=== PATIENT | male | born 1955 | race Caucasian/White ===

== ENCOUNTER → 2017-12-17 09:07 | Outpatient (CLI) | payer OTHER, SELFPAY ==
[2017-12-17 09:20] LABS: Appearance Urine UA CLEAR; Bilirubin Urine UA NEGATIVE (NEGATIVE); Color Urine UA YELLOW; Glucose Urine UA NEGATIVE (Normal); Ketones Urine UA NEGATIVE (NEGATIVE); Leukocyte Esterase Urine UA NEGATIVE (NEGATIVE); Nitrite Urine UA Negative (Negative); Occult Blood Urine UA NEGATIVE (Negative); Protein Urine UA NEGATIVE (Negative); Specific Gravity Urine UA 1.015 (1.000-1.035); Urobilinogen Urine UA 0.2 E.U./dL (0.2); pH Urine UA 6.5 (4.5-8.0)
[2017-12-17 09:21] LABS: Add Manual Diff / Slide Review NO; Basophils Percent Auto 1.8 % (0-2); Hematocrit 44.2 % (41-53); Hemoglobin 15.2 g/dL (13.5-17.5); Lymphocytes Percent Auto 35.6 % (25-40); Mean Corpuscular HGB Conc 34.4 % (30-36); Mean Corpuscular Hemoglobin 33.6 PG (26-34); Mean Corpuscular Volume 97.8 fL (80-100); Monocytes Percent Auto 13.7 % (3-14); Neutrophils Absolute Auto 1500 /uL (3000-5900); Neutrophils Percent Auto 44.9 % (50-75); Platelet Count 219 X10^3/uL (150-400); Red Blood Cell Count 4.52 X10^6/uL (4.5-5.9); Red Cell Distribution Width 12.9 % (11.6-14.8); White Blood Cell Count 3.3 X10^3/uL (4.5-11.0)
[2017-12-17 09:31] LABS: Alanine Aminotransferase 28 IU/L (21-72); Albumin 4.2 g/dL (3.5-5.0); Albumin Globulin Ratio 1.5 (1.0-2.8); Alkaline Phosphatase 44 U/L (38-126); Aspartate Aminotransferase 31 IU/L (17-59); Bilirubin Total 1.6 mg/dL (0.2-1.3); Blood Urea Nitrogen 20 mg/dL (9-20); Calcium 9.2 mg/dL (8.4-10.2); Carbon Dioxide 31 mmol/L (22-32); Chloride 105 mmol/L (98-107); Cholesterol 162 mg/dL (140-199); Estimated Glomerular Filt Rate > 60.0 mL/min (>60); Globulin 2.8 g/dL (1.7-4.1); Glucose 97 mg/dL (80-110); HDL Cholesterol 63 mg/dL (40-60); HEMOLYSIS < 15 (0-50); LDL Cholesterol Calculated 88 mg/dL (<100); Potassium 4.7 mmol/L (3.4-5.1); Sodium 144 mmol/L (137-145); Triglycerides 56 mg/dL (35-150)
[2017-12-17 10:01] LABS: Prostate Specific Antigen Scrn 0.931 ng/mL (0.1-4.0)
[2017-12-17 10:21] LABS: TSH w/ Reflex to FT4 4.47 uIU/mL (0.47-4.68)
== END ==
PROVIDERS: Visit Provider Nurse Practitioner Family
DX: Z00.00 Encounter for general adult medical examination without abnormal findings (principal)
CPT/HCPCS: 36415; 80053; 80061; 81003; 84443; 85025; G0103

== ENCOUNTER → 2018-01-27 13:00 | Oncology outpatient (ONC) | payer OTHER, SELFPAY ==
[2018-01-07 08:53] VITALS: BP 120/78; PULSE 56; RESP 18; TEMP 36.4; O2SAT 97
--- NOTE | 2018-01-07 09:08 | ONC.CONS ---
History of Present Illness - Data of Consult Consult date: 01/07/18 Primary Care Provider: Micaela Banks MD - Consult Narrative Narrative: Werner Kiser is a 62 year old male who is referred for further evaluation of a mild neutropenia. Patient reports that he has been feeling generally pretty well. He has had some difficulty sleeping and a little bit of fatigue. He is able to go about all of his normal activities. He denies any dyspnea on exertion. He is an avid cyclist and able to ride normally at his normal distance and speed. On a routine CBC, he was noted to have a white count of 3.3 with an absolute neutrophil count of 1500. His red cells and platelets were normal. He has not been bothered by any infections and has not required any antibiotics. His appetite has been good. He denies any nausea or vomiting. He has not been losing any weight. He has not noted any adenopathy. He has no history of splenomegaly. He otherwise feels quite well. Review of old CBCs shows that he has had a persistently low white count and neutrophil count dating back as far as 2006. In May 2010, his white count was 3.3 with an absolute neutrophil count of 1390. In July of 2006, his white count was 4.1 with an absolute neutrophil count of 2200. As red cell count and platelet count of always been normal. He currently takes valacyclovir as needed for cold sores but not regularly. He does use some ibuprofen and some tumor. He is not on any other medications. He denies any drug allergies. His past medical history is notable for some orthopedic surgery including knee surgery. He had appendicitis as a child. He has had a prior ankle fracture. Family history is negative for any cytopenias or neutropenia is that he is aware of. His mother had lymphoma. His sister had cancer although he is not sure of the details. 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 He does not smoke. He does drink alcohol. He does exercise regularly with cycling. CC: Travis Umanzor MD Home Medications and Allergies Home Medications Medication Instructions Recorded Confirmed Type valacyclovir 1,000 mg PO BIDP PRN #8 tab 10/15/16 12/22/17 Rx ibuprofen 400 mg PO Q4-6H PRN 01/07/18 01/07/18 History turmeric root extract 500 mg PO DAILY 01/07/18 01/07/18 History Allergies Allergy/AdvReac Type Severity Reaction Status Date / Time No Known Drug Allergies Allergy Verified 12/22/17 12:59 Medical History - Medical, Surgical, Family History Medical History: Medical History (Last Updated 12/19/17 @ 10:49 by Danae Ortiz) Chronic back pain Onset Date: 1988 CTS (carpal tunnel syndrome) Onset Date: 2004 Fractures Onset Date: 2007 Surgical History: Surgical History (Last Updated 12/19/17 @ 10:48 by Danae Ortiz) Anesthesia History of carpal tunnel repair Onset Date: 2014 History of colonoscopy Onset Date: 09/10/16 History of left knee surgery Onset Date: 2010 History of open reduction and internal fixation (ORIF) procedure Onset Date: 05/18/09 History of tonsillectomy Onset Date: 1972 Status post appendectomy Onset Date: 1972 Family History: Family History (Last Reviewed 12/16/17 @ 17:12 by Lakeisha Humphries, DNP, ANP, CASE MAKER-C) Grandfather Heart disease Mother Cancer Heart disease Non Hodgkin's lymphoma Grandfather Stroke Grandmother Mental health problem Dementia Brother No problems noted. Brother No problems noted. Father Sepsis Grandmother No problems noted. Sister No problems noted. Sister No problems noted. - Social History Smoking Status: Never smoker Review of Systems - Patient Self-Reported Symptoms SR Constitution: Fatigue/Malaise SR Genitourinary issues: Frequent urination Constitutional: able to conduct usual activities, normal exercise tolerance Ears, nose, mouth, throat: no dental problems, no sore throat Gastrointestinal: no change in appetite, no abdominal pain Genitourinary: no infections Exam Vital signs: Last Vital Signs Temp 97.6 F 01/07/18 08:53 Pulse 56 L 01/07/18 08:53 Resp 18 01/07/18 08:53 BP 120/78 01/07/18 08:53 Pulse Ox 97 01/07/18 08:53 - Constitutional positive no acute distress, positive average body habitus - Routine HEENT Exam Head: Present: normocephalic, atraumatic Eye: Present: EOMI, PERRL. Absent: conjunctival icterus, scleral injection ENT: Present: mucous membranes moist, oropharynx clear, dentition normal - Routine Neck Exam Present: supple. Absent: lymphadenopathy, thyromegaly - Routine Chest/Breast/Axilla Exam Chest wall exam standard: Absent: tenderness Axillae: Absent: lymphadenopathy - Routine Respiratory Exam Present: Clear to auscultation bilaterally. Absent: rales, wheezes - Routine Cardiovascular Exam Present: RRR, S1, S2. Absent: murmur - Routine Abdominal Exam Present: soft, normoactive bowel sounds. Absent: tenderness, distended, organomegaly, mass - Routine Extremities Exam Absent: cyanosis, clubbing, edema - Routine Back/Spine Exam Back/Spine: Absent: paraspinal tenderness, vertebral tenderness - Routine Skin Exam Present: intact. Absent: petechiae, rash - Routine Neurological Exam Present: alert, oriented X3 - Routine Psychiatric Exam Present: normal affect, normal thought process Results - Imaging Additional studies: Procedures APPLICATION OF SPLINT (05/14/09) OP RED-INT FIX TIB/FIBUL (05/18/09) Assessment and Plan (1) Neutropenia Problem details: 62-year-old man with chronic mild neutropenia that is been present for 10 years or more. He does not have any symptoms that are related to this or any associated tendency towards infection. His red cell count and platelet count have always been normal. I think it is reasonable check B12 and folate as well as a TSH. This could perhaps represent an autoimmune neutropenia and checking antineutrophil antibodies may be helpful. Other possible causes of neutropenia would be drugs or medications. He really is not taking any medications however. Hypersplenism or liver disease could potentially account for this. He is spleen however is not palpable on exam. This could potentially represent a congenital neutropenia. His lack of infections would argue against it however. Likewise, his history of few infections with suggest this is not likely to be a cyclic neutropenia. Given the relative stability over a decade or more, I doubt that there is any underlying myelodysplasia. I do not think that a bone marrow biopsy is either necessary or helpful. We will plan on checking a B12 folate TSH and antineutrophil antibodies. I have clinic in about 2 weeks or so for follow-up. Current visit: Yes Status: Acute
--- NOTE | 2018-01-07 14:17 | ONC.SCHED ---
ANTI-NEUTOPHIL ANTIBODIES [facility]#[id number] [place] PER [facility] REF#[id number]
[2018-01-12 15:22] LABS: Add Manual Diff / Slide Review NO; Basophils Percent Auto 0.7 % (0-2); Eosinophils Percent Auto 1.4 % (2-4); Hematocrit 41.8 % (41-53); Hemoglobin 14.3 g/dL (13.5-17.5); Lymphocytes Percent Auto 27.4 % (25-40); Mean Corpuscular HGB Conc 34.1 % (30-36); Mean Corpuscular Hemoglobin 33.1 PG (26-34); Mean Corpuscular Volume 96.9 fL (80-100); Monocytes Percent Auto 10.3 % (3-14); Neutrophils Absolute Auto 2300 /uL (3000-5900); Neutrophils Percent Auto 60.2 % (50-75); Platelet Count 206 X10^3/uL (150-400); Red Blood Cell Count 4.31 X10^6/uL (4.5-5.9); Red Cell Distribution Width 13.6 % (11.6-14.8); White Blood Cell Count 3.9 X10^3/uL (4.5-11.0)
[2018-01-12 16:07] LABS: Thyroid Stimulating Hormone 4.07 uIU/mL (0.47-4.68)
--- NOTE | 2018-01-12 16:27 | PC.NURSE ---
CBC stable, others pending. Appt on 01/27
[2018-01-12 16:45] LABS: Folate 10.7 ng/mL (2.76-20.0); Vitamin B12 275 pg/mL (239-931)
[2018-01-27 13:12] VITALS: BP 112/68; PULSE 49; RESP 18; TEMP 36.9; O2SAT 97
--- NOTE | 2018-01-27 13:29 | P.PNONC_ITS ---
PN -Subjective Interval history: Diagnosis: Chronic neutropenia Previous treatment: None Interval history: The patient is a 62-year-old man who returns today for follow-up of neutropenia. Since his last visit here, he has been feeling quite well and has no specific complaints. He denies any fevers chills or sweats. He has not had any trouble with infection. Strength and energy level have been stable. He continues to cycle regularly. He denies any unusual bleeding or bruising. Appetite has been good. He has not noted any adenopathy and denies any other changes in his health. His medications are unchanged and include ibuprofen tumeric and valacyclovir as needed. - Patient Self-Reported Symptoms SR Constitution: Fatigue/Malaise SR Genitourinary issues: Frequent urination Home Medications and Allergies Home Medications Medication Instructions Recorded Confirmed Type valacyclovir 1,000 mg PO BIDP PRN #8 tab 10/15/16 12/22/17 Rx ibuprofen 400 mg PO Q4-6H PRN 01/07/18 01/07/18 History turmeric root extract 500 mg PO DAILY 01/07/18 01/07/18 History Allergies Allergy/AdvReac Type Severity Reaction Status Date / Time No Known Drug Allergies Allergy Verified 12/22/17 12:59 Exam - Constitutional positive no acute distress, positive average body habitus - Routine HEENT Exam Head: Present: normocephalic, atraumatic Eye: Present: EOMI. Absent: conjunctival icterus ENT: Present: mucous membranes moist, oropharynx clear - Routine Neck Exam Present: supple. Absent: lymphadenopathy - Routine Respiratory Exam Present: Clear to auscultation bilaterally. Absent: rales, wheezes - Routine Cardiovascular Exam Present: RRR, S1, S2. Absent: murmur - Routine Abdominal Exam Present: soft, normoactive bowel sounds. Absent: tenderness, mass - Routine Extremities Exam Absent: edema - Routine Skin Exam Absent: petechiae, rash - Routine Neurological Exam Present: alert, oriented X3 - Routine Psychiatric Exam Present: normal affect, normal thought process Results - Labs Laboratory Last Values WBC 3.9 X10^3/uL (4.5-11.0) L 01/12/18 14:54 RBC 4.31 X10^6/uL (4.5-5.9) L 01/12/18 14:54 Hgb 14.3 g/dL (13.5-17.5) 01/12/18 14:54 Hct 41.8 % (41-53) 01/12/18 14:54 MCV 96.9 fL (80-100) 01/12/18 14:54 MCH 33.1 PG (26-34) 01/12/18 14:54 MCHC 34.1 % (30-36) 01/12/18 14:54 RDW 13.6 % (11.6-14.8) 01/12/18 14:54 Plt Count 206 X10^3/uL (150-400) 01/12/18 14:54 Neut % (Auto) 60.2 % (50-75) 01/12/18 14:54 Lymph % (Auto) 27.4 % (25-40) 01/12/18 14:54 [place] % (Auto) 10.3 % (3-14) 01/12/18 14:54 Eos % (Auto) 1.4 % (2-4) L 01/12/18 14:54 Baso % (Auto) 0.7 % (0-2) 01/12/18 14:54 Neut # (Auto) 2300 /uL (1779-8118) L 01/12/18 14:54 Vitamin B12 275 pg/mL (239-931) 01/12/18 14:54 Folate 10.7 ng/mL (2.76-20.0) 01/12/18 14:54 TSH 4.07 uIU/mL (0.47-4.68) 01/12/18 14:54 Ref Test (Refrig) 01/12/18 14:54 - Imaging Additional studies: Procedures APPLICATION OF SPLINT (05/14/09) OP RED-INT FIX TIB/FIBUL (05/18/09) Assessment and Plan (1) Neutropenia Problem details: 62-year-old man with chronic mild neutropenia that is been present for 10 years or more. He does not have any symptoms that are related to this or any associated tendency towards infection. His red cell count and platelet count have always been normal. His most recent CBC confirmed really no change in his prior counts although his white count is perhaps a little higher than his typical baseline. TSH was normal. B12 and folate were normal although the B12 was at the lower end of the normal range. There was no evidence of antineutrophil antibodies. I do not think any obvious cause for his neutropenia is apparent. He might perhaps benefit from taking a B12 supplement but it probably will not change his counts. Given the chronic nature of his cytopenia and lack of symptoms or progression, I do not think that any further evaluation is necessary. I recommended that he follow-up with his primary physician and continue with annual physical and CBCs periodically. I would be happy to see him again in the future should his counts significantly changed or should any symptoms attributable to his low white count developed. We will plan on checking a B12 folate TSH and antineutrophil antibodies. I have clinic in about 2 weeks or so for follow-up. Current visit: Yes Status : Acute
== END ==
PROVIDERS: Family Provider Family Medicine; PCP Family Medicine
DX: D70.9 Neutropenia, unspecified (principal)
CPT/HCPCS: 36415; 82607; 82746; 84443; 85025; 86021; 99204; 99214

== ENCOUNTER → 2018-11-18 07:17 | Outpatient (CLI) | payer OTHER, SELFPAY ==
[2018-11-18 08:37] LABS: BUN Creatinine Ratio 27.5 (6-22); Blood Urea Nitrogen 22 mg/dL (9-20); Calcium 9.3 mg/dL (8.4-10.2); Carbon Dioxide 27 mmol/L (22-32); Chloride 106 mmol/L (98-107); Cholesterol 167 mg/dL (140-199); Estimated Glomerular Filt Rate > 60.0 mL/min (>60); Glucose 88 mg/dL (80-110); HDL Cholesterol 73 mg/dL (40-60); HEMOLYSIS < 15 (0-50); LDL Cholesterol Calculated 84 mg/dL (<100); Potassium 4.7 mmol/L (3.4-5.1); Sodium 140 mmol/L (137-145); Triglycerides 52 mg/dL (35-150)
[2018-11-18 09:08] LABS: Prostate Specific Antigen 0.596 ng/mL (0.10-4.00)
== END ==
PROVIDERS: PCP Registered Nurse; Visit Provider Registered Nurse
DX: Z13.220 Encounter for screening for lipoid disorders (principal); Z12.5 Encounter for screening for malignant neoplasm of prostate; Z13.6 Encounter for screening for cardiovascular disorders
CPT/HCPCS: 36415; 80048; 80061; 84153

== ENCOUNTER → 2019-10-18 07:06 | Outpatient (CLI) | payer OTHER, SELFPAY ==
[2019-10-18 08:05] LABS: Add Manual Diff / Slide Review NO; Basophils Absolute Auto 0 /uL (0-100); Basophils Percent Auto 0.6 % (0-2); Eosinophils Absolute Auto 100 /uL (0-450); Eosinophils Percent Auto 2.1 % (2-4); Hemoglobin 14.2 g/dL (13.5-17.5); Lymphocytes Absolute Auto 1300 /uL (1100-4500); Lymphocytes Percent Auto 35.6 % (25-40); Mean Corpuscular HGB Conc 34.6 % (30-36); Mean Corpuscular Hemoglobin 33.6 PG (26-34); Mean Corpuscular Volume 97.1 fL (80-100); Monocytes Absolute Auto 500 /uL (0-900); Monocytes Percent Auto 12.5 % (3-14); Neutrophils Absolute Auto 1800 /uL (1500-7000); Neutrophils Percent Auto 49.2 % (50-75); Platelet Count 200 X10^3/uL (150-400); Red Blood Cell Count 4.22 X10^6/uL (4.5-5.9); Red Cell Distribution Width 13.6 % (11.6-14.8); White Blood Cell Count 3.7 X10^3/uL (4.5-11.0)
[2019-10-18 08:21] LABS: Alanine Aminotransferase 25 IU/L (<50); Albumin 4.1 g/dL (3.5-5.0); Albumin Globulin Ratio 1.6 (1.0-2.8); Alkaline Phosphatase 47 U/L (38-126); Aspartate Aminotransferase 32 IU/L (17-59); BUN Creatinine Ratio 25.9 (6-22); Bilirubin Total 1.5 mg/dL (0.2-1.3); Blood Urea Nitrogen 21 mg/dL (9-20); Calcium 9.4 mg/dL (8.4-10.2); Carbon Dioxide 30 mmol/L (22-32); Chloride 105 mmol/L (98-107); Cholesterol 149 mg/dL (140-199); Estimated Glomerular Filt Rate > 60.0 mL/min (>60); Globulin 2.6 g/dL (1.7-4.1); Glucose 98 mg/dL (80-110); HDL Cholesterol 54 mg/dL (40-60); HEMOLYSIS < 15 (0-50); LDL Cholesterol Calculated 86 mg/dL (<100); Potassium 4.7 mmol/L (3.4-5.1); Sodium 138 mmol/L (137-145); Total Protein 6.7 g/dL (6.3-8.2); Triglycerides 44 mg/dL (35-150)
== END ==
PROVIDERS: PCP Registered Nurse Diabetes Educator; Referring Provider Registered Nurse Diabetes Educator; Visit Provider Registered Nurse Diabetes Educator
DX: Z00.00 Encounter for general adult medical examination without abnormal findings (principal); Z12.5 Encounter for screening for malignant neoplasm of prostate
CPT/HCPCS: 36415; 80053; 80061; 85025; G0103

== ENCOUNTER → 2019-10-29 10:08 | Outpatient (CLI) | payer OTHER, SELFPAY ==
--- NOTE | 2019-10-29 10:09 | DI.US.S_ITS ---
PROCEDURE: US ABDOMEN LIMITED INDICATIONS: LEFT INGUINAL LUMP X 3 WEEKS TECHNIQUE: Real-time focused scanning was performed of the inguinal region, with image documentation. COMPARISON: None. FINDINGS: There is a subcutaneous structure corresponding to the area of current clinical concern, measuring up to 6 x 19 x 20 mm, containing low level internal echoes and minimal in terminal vascularity. The appearance is nonspecific. IMPRESSION: Soft tissue masslike structure without it internal free fluid, but with internal vascularity present to a mild degree. Etiology is uncertain, dermatology or surgical consultation likely is warranted. Dictated by: Mane Corado M.D. on 10/29/2019 at 12:28 Approved by: Mane Corado M.D. on 10/29/2019 at 12:29
== END ==
PROVIDERS: PCP Registered Nurse Diabetes Educator; Referring Provider Registered Nurse Diabetes Educator; Visit Provider Registered Nurse Diabetes Educator
DX: R59.0 Localized enlarged lymph nodes (principal)
CPT/HCPCS: 76705

== ENCOUNTER 2020-02-23 18:58 | Emergency (ER) | payer OTHER, SELFPAY ==
[2020-02-23 19:04] VITALS: BP 143/86; PULSE 71; RESP 14; TEMP 36.7; O2SAT 99
[2020-02-23] MEDS: TET,DIPH,PERTUSS(ACELL),VAC/PF 0.5 ML SYRINGE IM (19:10)
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
== END 2020-02-23 19:17 | disposition home or self-care (01) ==
PROVIDERS: Emergency Provider Nurse Practitioner; PCP Registered Nurse Diabetes Educator
DX: S81.812A Laceration without foreign body, left lower leg, initial encounter (principal); V19.9XXA Pedal cyclist (driver) (passenger) injured in unspecified traffic accident, initial encounter; Z23 Encounter for immunization
CPT/HCPCS: 90471; 99281; 99283; 90715

== ENCOUNTER → 2020-07-17 07:07 | Outpatient (CLI) | payer OTHER, SELFPAY | PROVIDERS: PCP Registered Nurse Diabetes Educator; Referring Provider Orthopaedic Surgery; Visit Provider Orthopaedic Surgery | DX: M19.011 Primary osteoarthritis, right shoulder (principal); Z53.20 Procedure and treatment not carried out because of patient's decision for unspecified reasons ==

== ENCOUNTER → 2021-02-02 07:40 | Outpatient (CLI) | payer MEDICARE, OTHER, SELFPAY ==
[2021-02-02 08:25] LABS: Add Manual Diff / Slide Review NO; Basophils Absolute Auto 0 /uL (0-100); Basophils Percent Auto 1.2 % (0-2); Eosinophils Absolute Auto 100 /uL (0-450); Eosinophils Percent Auto 4.5 % (2-4); Hematocrit 43.1 % (41-53); Hemoglobin 14.8 g/dL (13.5-17.5); Lymphocytes Absolute Auto 1200 /uL (1100-4500); Lymphocytes Percent Auto 36.2 % (25-40); Mean Corpuscular HGB Conc 34.3 % (30-36); Mean Corpuscular Hemoglobin 32.9 PG (26-34); Mean Corpuscular Volume 95.9 fL (80-100); Monocytes Absolute Auto 400 /uL (0-900); Monocytes Percent Auto 12.6 % (3-14); Neutrophils Absolute Auto 1500 /uL (1500-7000); Neutrophils Percent Auto 45.5 % (50-75); Platelet Count 200 X10^3/uL (150-400); Red Blood Cell Count 4.49 X10^6/uL (4.5-5.9); Red Cell Distribution Width 13.4 % (11.6-14.8); White Blood Cell Count 3.2 X10^3/uL (4.5-11.0)
[2021-02-02 08:53] LABS: Alanine Aminotransferase 19 IU/L (<50); Albumin 4.1 g/dL (3.5-5.0); Albumin Globulin Ratio 1.6 (1.0-2.8); Alkaline Phosphatase 48 U/L (38-126); Aspartate Aminotransferase 26 IU/L (17-59); BUN Creatinine Ratio 22.4 (6-22); Bilirubin Total 1.3 mg/dL (0.2-1.3); Blood Urea Nitrogen 19 mg/dL (9-20); Calcium 9.2 mg/dL (8.4-10.2); Carbon Dioxide 29 mmol/L (22-32); Chloride 103 mmol/L (98-107); Cholesterol 150 mg/dL (140-199); Estimated Glomerular Filt Rate > 60.0 mL/min (>60); Globulin 2.5 g/dL (1.7-4.1); Glucose 94 mg/dL (80-110); HDL Cholesterol 58 mg/dL (40-60); HEMOLYSIS < 15 (0-50); LDL Cholesterol Calculated 83 mg/dL (<100); Potassium 4.7 mmol/L (3.4-5.1); Sodium 138 mmol/L (137-145); Total Protein 6.6 g/dL (6.3-8.2); Triglycerides 45 mg/dL (35-150)
[2021-02-02 09:20] LABS: Prostate Specific Antigen Scrn 0.748 ng/mL (0.1-4.0)
== END ==
PROVIDERS: PCP Family Medicine; Referring Provider Family Medicine; Visit Provider Family Medicine
DX: D70.9 Neutropenia, unspecified (principal); N13.8 Other obstructive and reflux uropathy; Z12.5 Encounter for screening for malignant neoplasm of prostate; N40.1 Benign prostatic hyperplasia with lower urinary tract symptoms; R59.0 Localized enlarged lymph nodes; Z80.42 Family history of malignant neoplasm of prostate
CPT/HCPCS: 36415; 80053; 80061; 85025; G0103

== ENCOUNTER → 2021-02-05 10:47 | Outpatient (CLI) | payer MEDICARE, OTHER, SELFPAY ==
--- NOTE | 2021-02-05 10:50 | DI.RAD.S_ITS ---
PROCEDURE: XR SHOULDER LT MIN 2V INDICATIONS: left shoulder pain TECHNIQUE: 3 views of the shoulder were acquired. COMPARISON: None. FINDINGS: Bones: No fractures or dislocations. No suspicious bony lesions. Visualized ribs appear intact. Moderate acromioclavicular joint degenerative hypertrophy noted. Soft tissues: No suspicious soft tissue calcifications. IMPRESSION: Moderate AC osteoarthritis Approved by: Javier Gaviria M.D. on 02/05/2021 at 11:00
--- NOTE | 2021-02-05 10:50 | DI.RAD.S_ITS ---
PROCEDURE: XR CERVICAL SPINE 4V OR 5V INDICATIONS: L shoulder pain/poss cervical radiculopathy TECHNIQUE: 6 views of the cervical spine were acquired. COMPARISON: None. FINDINGS: Bones: No fractures or dislocations to the T1 level. No suspicious bony lesions. Multilevel disc degeneration, most notably in moderate to severe at the C5-C6 and to lesser degree C6-C7 levels. Moderate multilevel mid and lower cervical spine facet joint arthropathy and mild multilevel uncovertebral hypertrophy. There is normal range of motion between flexion and extension, with preserved normal bony alignment. Soft tissues: Prevertebral soft tissues are normal in thickness. Vascular calcifications indicate atherosclerosis. IMPRESSION: Multilevel spondylosis. Dictated by: Luis Fernando Lima [facility] Interpreted: Ej Barrera MD on 02/05/2021 at 11:30 Transcribed by: ULI on 02/05/2021 at 11:32 Approved by: Ej Barrera M.D. on 02/05/2021 at 16:24
== END ==
PROVIDERS: PCP Family Medicine; Referring Provider Family Medicine; Visit Provider Family Medicine
DX: M25.512 Pain in left shoulder; M47.812 Spondylosis without myelopathy or radiculopathy, cervical region; M19.012 Primary osteoarthritis, left shoulder; M62.838 Other muscle spasm; G89.29 Other chronic pain
CPT/HCPCS: 72050; 73030

== ENCOUNTER → 2021-11-13 14:24 | Outpatient (CLI) | payer MEDICARE, OTHER, SELFPAY ==
--- NOTE | 2021-11-13 14:28 | DI.RAD.S_ITS ---
PROCEDURE: XR SHOULDER LT MIN 2V INDICATIONS: L shoulder injury, limited ROM TECHNIQUE: 3 views of the shoulder were acquired. COMPARISON: [facility], CR, XR SHOULDER LT MIN 2V, 02/05/2021, 10:49. FINDINGS: Bones: No fractures or dislocations. Moderate acromioclavicular joint and glenohumeral joint osteoarthritic changes are seen. No suspicious bony lesions. Visualized ribs appear intact. Soft tissues: No suspicious soft tissue calcifications. IMPRESSION: Moderate left shoulder joint osteoarthritis. No fracture or dislocation. No gross soft tissue abnormality. Dictated by: Ej Barrera M.D. on 11/13/2021 at 15:21 Approved by: Ej Barrera M.D. on 11/13/2021 at 15:21
== END ==
PROVIDERS: PCP Family Medicine; Referring Provider Physician Assistant; Visit Provider Physician Assistant
DX: S49.92XA Unspecified injury of left shoulder and upper arm, initial encounter (principal); M19.012 Primary osteoarthritis, left shoulder; X58.XXXA Exposure to other specified factors, initial encounter
CPT/HCPCS: 73030

== ENCOUNTER → 2022-03-14 07:44 | Outpatient (CLI) | payer MEDICARE, OTHER, SELFPAY ==
[2022-03-14 10:12] LABS: Add Manual Diff / Slide Review NO; Basophils Absolute Auto 0 /uL (0-100); Basophils Percent Auto 1.2 % (0-2); Eosinophils Absolute Auto 200 /uL (0-450); Eosinophils Percent Auto 5.2 % (2-4); Hematocrit 41.7 % (41-53); Hemoglobin 14.2 g/dL (13.5-17.5); Lymphocytes Absolute Auto 1200 /uL (1100-4500); Lymphocytes Percent Auto 32.9 % (25-40); Mean Corpuscular HGB Conc 34.1 % (30-36); Mean Corpuscular Hemoglobin 32.9 PG (26-34); Mean Corpuscular Volume 96.6 fL (80-100); Monocytes Absolute Auto 500 /uL (0-900); Monocytes Percent Auto 12.2 % (3-14); Neutrophils Absolute Auto 1800 /uL (1500-7000); Neutrophils Percent Auto 48.5 % (50-75); Platelet Count 232 X10^3/uL (150-400); Red Blood Cell Count 4.32 X10^6/uL (4.5-5.9); Red Cell Distribution Width 13.4 % (11.6-14.8); White Blood Cell Count 3.7 X10^3/uL (4.5-11.0)
[2022-03-14 10:30] LABS: Alanine Aminotransferase 27 IU/L (<50); Albumin Globulin Ratio 1.5 (1.0-2.8); Alkaline Phosphatase 51 U/L (38-126); Aspartate Aminotransferase 28 IU/L (17-59); BUN Creatinine Ratio 26.3 (6-22); Bilirubin Total 1.3 mg/dL (0.2-1.3); Blood Urea Nitrogen 21 mg/dL (9-20); Calcium 8.7 mg/dL (8.4-10.2); Carbon Dioxide 28 mmol/L (22-32); Chloride 104 mmol/L (98-107); Cholesterol 149 mg/dL (140-199); Estimated Glomerular Filt Rate > 60 mL/min (>60); Globulin 2.7 g/dL (1.7-4.1); Glucose 90 mg/dL (80-110); HDL Cholesterol 57 mg/dL (40-60); HEMOLYSIS < 15 (0-50); LDL Cholesterol Calculated 85 mg/dL (<100); Potassium 4.9 mmol/L (3.4-5.1); Sodium 139 mmol/L (137-145); Total Protein 6.7 g/dL (6.3-8.2); Triglycerides 34 mg/dL (35-150)
[2022-03-14 11:00] LABS: Prostate Specific Antigen 1.18 ng/mL (0.10-4.00); TSH w/ Reflex to FT4 4.01 uIU/mL (0.47-4.68)
== END ==
PROVIDERS: PCP Family Medicine; Referring Provider Family Medicine; Visit Provider Family Medicine
DX: N40.1 Benign prostatic hyperplasia with lower urinary tract symptoms (principal); Z80.42 Family history of malignant neoplasm of prostate; N13.8 Other obstructive and reflux uropathy; R39.9 Unspecified symptoms and signs involving the genitourinary system
CPT/HCPCS: 36415; 80053; 80061; 84153; 84443; 85025

== ENCOUNTER → 2022-09-23 13:40 | Outpatient (CLI) | payer MEDICARE, OTHER, SELFPAY ==
[2022-09-23 15:24] LABS: Prostate Specific Antigen Scrn 0.637 ng/mL (0.1-4.0)
== END ==
PROVIDERS: PCP Family Medicine; Referring Provider Family Medicine; Visit Provider Family Medicine
DX: Z12.5 Encounter for screening for malignant neoplasm of prostate (principal); R97.20 Elevated prostate specific antigen [PSA]
CPT/HCPCS: 36415; G0103

== ENCOUNTER → 2023-02-26 08:15 | Outpatient (CLI) | payer MEDICARE, OTHER, SELFPAY | PROVIDERS: PCP Family Medicine; Visit Provider Nurse Practitioner Family | DX: J02.9 Acute pharyngitis, unspecified (principal) | CPT/HCPCS: 87070; 87077; 87147 ==

== ENCOUNTER → 2023-04-01 07:10 | Outpatient (CLI) | payer MEDICARE, OTHER, SELFPAY ==
[2023-04-01 08:06] LABS: Add Manual Diff / Slide Review NO; Basophils Absolute Auto 0 /uL (0-100); Basophils Percent Auto 0.9 % (0-2); Eosinophils Absolute Auto 100 /uL (0-450); Eosinophils Percent Auto 2.4 % (2-4); Hematocrit 42.7 % (41-53); Hemoglobin 14.7 g/dL (13.5-17.5); Lymphocytes Absolute Auto 1300 /uL (1100-4500); Lymphocytes Percent Auto 36.8 % (25-40); Mean Corpuscular HGB Conc 34.3 % (30-36); Mean Corpuscular Hemoglobin 32.8 PG (26-34); Mean Corpuscular Volume 95.5 fL (80-100); Monocytes Absolute Auto 400 /uL (0-900); Monocytes Percent Auto 12.3 % (3-14); Neutrophils Absolute Auto 1700 /uL (1500-7000); Neutrophils Percent Auto 47.6 % (50-75); Platelet Count 187 X10^3/uL (150-400); Red Blood Cell Count 4.47 X10^6/uL (4.5-5.9); Red Cell Distribution Width 13.6 % (11.6-14.8); White Blood Cell Count 3.6 X10^3/uL (4.5-11.0)
[2023-04-01 08:20] LABS: Alanine Aminotransferase 20 IU/L (<50); Albumin Globulin Ratio 1.3 (1.0-2.8); Alkaline Phosphatase 54 U/L (38-126); BUN Creatinine Ratio 25.9 (6-22); Bilirubin Total 1.3 mg/dL (0.2-1.3); Blood Urea Nitrogen 21 mg/dL (9-20); Calcium 9.5 mg/dL (8.4-10.2); Carbon Dioxide 27 mmol/L (22-32); Chloride 106 mmol/L (98-107); Cholesterol 160 mg/dL (140-199); Estimated Glomerular Filt Rate > 60 mL/min (>60); Glucose 100 mg/dL (80-110); HDL Cholesterol 64 mg/dL (40-60); HEMOLYSIS < 15 (0-50); LDL Cholesterol Calculated 85 mg/dL (<100); Potassium 4.8 mmol/L (3.4-5.1); Sodium 138 mmol/L (137-145); Triglycerides 54 mg/dL (35-150)
[2023-04-01 08:45] LABS: Prostate Specific Antigen 0.787 ng/mL (0.10-4.00)
[2023-04-01 08:49] LABS: Thyroid Stimulating Hormone 6.34 uIU/mL (0.47-4.68)
[2023-04-02 06:44] LABS: Apolipoprotein B 72 mg/dL (<90)
[2023-04-03 02:08] LABS: Lipoprotein (a) <8.4 nmol/L (<75.0)
[2023-04-04 14:51] LABS: Aspartate Aminotransferase 25 IU/L (17-59)
== END ==
PROVIDERS: PCP Family Medicine; Referring Provider Family Medicine; Visit Provider Family Medicine
DX: Z00.00 Encounter for general adult medical examination without abnormal findings (principal); Z80.42 Family history of malignant neoplasm of prostate; N40.1 Benign prostatic hyperplasia with lower urinary tract symptoms; N13.8 Other obstructive and reflux uropathy; D70.9 Neutropenia, unspecified; Z79.899 Other long term (current) drug therapy; G47.00 Insomnia, unspecified
CPT/HCPCS: 36415; 80053; 80061; 82172; 83695; 84153; 84443; 85025

== ENCOUNTER → 2024-04-06 07:30 | Outpatient (CLI) | payer MEDICARE, OTHER, SELFPAY ==
[2024-04-06 08:24] LABS: Add Manual Diff / Slide Review NO; Basophils Absolute Auto 0 /uL (0-100); Eosinophils Absolute Auto 100 /uL (0-450); Eosinophils Percent Auto 2.5 % (2-4); Hematocrit 42.5 % (41-53); Hemoglobin 14.3 g/dL (13.5-17.5); Lymphocytes Absolute Auto 1400 /uL (1100-4500); Mean Corpuscular HGB Conc 33.7 % (30-36); Mean Corpuscular Hemoglobin 33.1 PG (26-34); Monocytes Absolute Auto 400 /uL (0-900); Monocytes Percent Auto 12.2 % (3-14); Neutrophils Absolute Auto 1500 /uL (1500-7000); Neutrophils Percent Auto 44.3 % (50-75); Platelet Count 199 X10^3/uL (150-400); Red Blood Cell Count 4.33 X10^6/uL (4.5-5.9); Red Cell Distribution Width 13.7 % (11.6-14.8); White Blood Cell Count 3.5 X10^3/uL (4.5-11.0)
[2024-04-06 08:39] LABS: Hemoglobin A1C% w Est Avg Glu 5.3 % (4.0-6.0)
[2024-04-06 08:48] LABS: Alanine Aminotransferase 25 IU/L (<50); Albumin Globulin Ratio 1.7 (1.0-2.8); Alkaline Phosphatase 49 U/L (38-126); Aspartate Aminotransferase 30 IU/L (17-59); BUN Creatinine Ratio 26.4 (6-22); Bilirubin Total 1.2 mg/dL (0.2-1.3); Blood Urea Nitrogen 24 mg/dL (9-20); Calcium 9.2 mg/dL (8.4-10.2); Carbon Dioxide 28 mmol/L (22-32); Chloride 106 mmol/L (98-107); Cholesterol 174 mg/dL (140-199); Estimated Glomerular Filt Rate > 60 mL/min (>60); Globulin 2.3 g/dL (1.7-4.1); Glucose 91 mg/dL (80-110); HDL Cholesterol 60 mg/dL (40-60); HEMOLYSIS < 15 (0-50); LDL Cholesterol Calculated 102 mg/dL (<100); Sodium 138 mmol/L (137-145); Total Protein 6.3 g/dL (6.3-8.2); Triglycerides 61 mg/dL (35-150)
[2024-04-06 09:16] LABS: TSH w/ Reflex to FT4 6.21 uIU/mL (0.47-4.68)
[2024-04-06 09:18] LABS: Prostate Specific Antigen 0.769 ng/mL (0.10-4.00)
[2024-04-06 12:04] LABS: Free T4, Direct Thyroxine 0.93 ng/dL (0.78-2.19)
[2024-04-07 04:12] LABS: Apolipoprotein B 80 mg/dL (<90)
== END ==
PROVIDERS: PCP Family Medicine; Referring Provider Family Medicine; Visit Provider Family Medicine
DX: D70.9 Neutropenia, unspecified (principal); Z13.1 Encounter for screening for diabetes mellitus; N40.1 Benign prostatic hyperplasia with lower urinary tract symptoms; N48.6 Induration penis plastica; N13.8 Other obstructive and reflux uropathy
CPT/HCPCS: 36415; 80053; 80061; 82172; 83036; 84153; 84439; 84443; 85025

== ENCOUNTER → 2024-07-01 07:30 | Outpatient (CLI) | payer MEDICARE, OTHER, SELFPAY ==
[2024-07-01 09:03] LABS: TSH w/ Reflex to FT4 4.31 uIU/mL (0.47-4.68)
== END ==
PROVIDERS: PCP Family Medicine; Referring Provider Family Medicine; Visit Provider Family Medicine
DX: E03.9 Hypothyroidism, unspecified (principal)
CPT/HCPCS: 36415; 84443

== ENCOUNTER → 2024-10-26 10:09 | Outpatient (CLI) | payer MEDICARE, OTHER, SELFPAY ==
[2024-10-26 11:43] LABS: Estimated Glomerular Filt Rate > 60 mL/min (>60)
[2024-10-26 12:17] LABS: Prostate Specific Antigen 0.867 ng/mL (0.10-4.00)
== END ==
PROVIDERS: Urology; PCP Family Medicine; Referring Provider Physician Assistant Surgical; Visit Provider Physician Assistant Surgical
DX: M25.511 Pain in right shoulder (principal); M67.911 Unspecified disorder of synovium and tendon, right shoulder; M75.21 Bicipital tendinitis, right shoulder; Z80.42 Family history of malignant neoplasm of prostate
CPT/HCPCS: 36415; 82565; 84153